=== PATIENT | male | born 1990 | race Caucasian/White ===

== ENCOUNTER 2022-12-21 14:55 | Outpatient (CLI) | payer OTHER ==
[2022-12-21 15:44] VITALS: BP 102/64
--- NOTE | 2022-12-21 15:44 | SLEEP CARE CONSULTATION ---
Information from patient questionnaire entered by Yovanny Fischer. I have reviewed and concur with the information entered by Yovanny Ficsher. This document represents the service I personally performed and the decisions made by me, Marleny Hanson ARNP. History of Present Illness Service Date and Time: 12/21/2022 1455 Reason for Visit: New patient Chief Complaint: reports: Unrefreshed sleep, Snoring, Observed pauses in breathing Date of Onset: 1+YRS Usual bedtime: 3822-0344 Time it takes to fall asleep: 10MIN Snores at night: Yes Observed to quit breathing while asleep: No Sleeps alone due to snoring: No Number of times waking at night: SEVERAL TIMES A WEEK Reasons for waking at night: reports: Snoring, Gasping for air, Pain, Bathroom, Other (UNKNOWN). denies: Choking Toss, Turn, or Twitch while sleeping: Yes Recalls having dreams: Yes Usually gets out of bed at: 0720; weekends 0830 since last day of work ( from [employer]) Feels refreshed in the morning: No Morning headache: Yes (1-2 times a week; after caffeine tylenol) Sleepy or fatigued during the day: Yes Ever fallen asleep while driving: No Takes day naps: Yes (tries not to) Dreams during day naps: No Prior sleep studies: No Additional HPI information: I had the pleasure of seeing LEMUEL GOODMAN today regarding the possibility of him having a sleep disorder. His current complaints are unrefreshed sleep, snor ing and observed pauses in breathing. He states that he does not wake up feeling rested. He needs coffee to feel awake. He will randomly wake up at night. A couple of times he felt he woke up because he was not breathing. It may have happened when he was on his back. He normally sleeps on his sides. His has told him that he snores. He states he will wake up with headaches, some due to dehydration. He tries to drink enough water. - Parasomnia Symptoms Ever been unable to move upon waking from sleep: Yes (twice in life, none in last year) Walks in sleep: No Talks in sleep: No Ever acted out dreams in sleep: No Ever felt weak in the knees when startled or emotional: Yes (once when shown his was , did not fall to ground) Bothered by creepy, crawly, restless sensations in legs: Yes (at night daily) Problems with memory or concentration: Yes (concentration; dx with ADHD as a youth, not on meds anymore) Subjective Initial [place] Sleepiness Scale score: 11 (11/28/22) Past Medical History Past Medical History: reports: Attention deficit Social History 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 Patient is and lives in . Have you smoked in the past 12 months: Yes (last vape on , weaning over last month) Cigarettes per day (20/pack): 30 (30PUFFS ON CIGAR) Alcohol use: Yes Alcohol amount and frequency: DEPENDS EXTREMLY RARE Caffeine use: Yes Caffeine amount and frequency: 1 DAILY Family History Family history of sleep disordered breathing: Yes Family Hx Sleep Apnea: Father: Snoring Allergies and Home Medications Known drug allergies: No Drug allergies reviewed: Yes Home medication list reviewed: Yes (one a day vitamins; no prescribed medications) Review of Systems Weight gain over past 5 years: 30 Cardiovascular: reports: high blood pressure (at recent doctor's appt) Respiratory: denies: shortness of breath Gastrointestinal: denies: heartburn Neurological: reports: headaches, disorientation Psychiatric: reports: Attention Deficit Hyperactivity, anxiety Ear/Nose/Throat: reports: dry mouth/throat, wisdom teeth removed. denies: tonsillectomy Musculoskeletal: reports: back pain Physical Exam Vital signs obtained and entered by: YOVANNY Silverio MA Blood Pressure: 102/64 (LEFT ARM) Cuff size: regular (LEFT ARM) Heart Rate: 89 O2 Saturation: 97 Height: 5 ft 7 in Weight: 172 lb 6.4 oz Body Mass Index: 27.0 BMI Classification: Overweight Neck circumference: 15 Mouth and throat: narrow oropharynx Soft palate: long Hard palate: normal Uvula: normal Uvula visualization: 25% Mallampati Class III Tongue: enlarged in size with teeth campbell on lateral edges Tonsils: small Neck: normal w/o lymphadenopathy or thyromegaly Heart: regular rate and rhythm Lungs: clear bilaterally Impression and Plan 1. Suspected Obstructive Sleep Apnea-Hypopnea Syndrome, as suggested by a history of loud and irregular snoring, observed cessation of breath while asleep, gasping or choking in sleep, morning headache, unrefreshed sleep, cognitive impairment, and excessive daytime sleepiness. Narrow oropharynx and obesity are common predisposing factors for obstructive sleep apnea-hypopnea syndrome. I recommend proceeding to polysomnography to confirm the diagnosis and to assess severity. If the patient has significant sleep disordered breathing, a manual CPAP titration study will also be performed to find the optimal treatment pressure. I informed the patient of what the sleep studies involve and after some discussion, obtained agreement to proceed. The pathophysiology of obstructive sleep apnea-hypopnea syndrome was discussed with the patient and health risks of cardiovascular and cerebrovascular disease if not treated. Risks of drowsy driving discussed in detail and patient advised to avoid long distance driving and to pack puller at the first sign of drowsiness. Patient agreed to plan. * Schedule polysomnography * Avoid long distance driving or driving when feeling sleepy. * Avoid alcohol, sedative and muscle relaxant around bedtime. * Attempt to lose weight. * Review instructions provided by trained office staff on how to prepare for the sleep study. * Return for follow-up after sleep study completed. Counseling Topics: Weight loss health impact Visit Type: In Office Time Spent with Patient (minutes): 31 Provider Statement: I spent 100% of the Face to Face Visit with the patient with greater than 50% spent counseling the patient and coordination of care.
== END 2022-12-21 14:56 | disposition home or self-care (01) ==
LOC: SC 14:55
PROVIDERS: ATTEND Nurse Practitioner Family
DX: R06.83 Snoring (principal); G47.8 Other sleep disorders; R06.81 Apnea, not elsewhere classified; R51.9 Headache, unspecified; G47.10 Hypersomnia, unspecified; E66.3 Overweight; Z68.27 Body mass index [BMI] 27.0-27.9, adult; F98.8 Other specified behavioral and emotional disorders with onset usually occurring in childhood and adolescence; F17.290 Nicotine dependence, other tobacco product, uncomplicated
CPT/HCPCS: 99203; 99212

== ENCOUNTER 2023-01-03 14:16 | Outpatient (CLI) | payer OTHER | END 2023-01-03 14:17 | disposition home or self-care (01) | LOC: SC 14:16 | PROVIDERS: ATTEND Nurse Practitioner Family | DX: R06.83 Snoring (principal); G47.8 Other sleep disorders; R06.81 Apnea, not elsewhere classified; R51.9 Headache, unspecified; G47.10 Hypersomnia, unspecified | CPT/HCPCS: 95806 ==